=== PATIENT | female | born 1985 | race African-American/Black ===

== ENCOUNTER → 2016-07-12 | Outpatient (CLI) | payer BC ==
--- NOTE | 2016-07-12 17:38 | RAD ---
Indication small for dates. Obstetrical ultrasound examination was performed. No prior obstetrical ultrasound examination is available associated with this . There is a single, viable, IUP. However heart rate was not documented on this exam. The technologist performing the examination indicated positive movement and cardiac activity. The amount of amniotic fluid appears normal. The placenta is predominantly anterior. Biparietal diameter of 3.3 cm, head circumference of 12.2 cm, abdominal circumference of 10 cm and femoral length of 2.3 cm are compatible with a gestational age of approximately 16 weeks 2 days. By sonographic analysis the expected date of confinement is 12/25/2016. Estimated weight is 150 g. There was a 4 chambered heart and a three-vessel cord. The current present is transverse. The visualized bladder stomach and kidneys appeared normal. Because of positioning the spine and brain were not well visualized. IMPRESSION: Single, viable, IUP of approximately 16 weeks 2 days gestation
== END | disposition home or self-care (01) ==
LOC: US 15:41
PROVIDERS: ATTEND Family Medicine
DX: O36.5920 Maternal care for other known or suspected poor fetal growth, second trimester, not applicable or unspecified (principal); Z3A.16 16 weeks gestation of pregnancy
CPT/HCPCS: 76805

== ENCOUNTER → 2016-08-29 | Outpatient (CLI) | payer BC ==
--- NOTE | 2016-08-29 16:40 | KCIC ---
Clinical Indication: Patient measuring large for dates Technique: Study is dated August 29, 2016. No comparison study is available. Transabdominal imaging was performed. Findings: There is a single intrauterine gestation in cephalic presentation. The placenta is anterior in location without evidence of placental previa. Cervix measures at least 3.7 cm in length. IVANIA subjectively is within normal limits. Biometrical data is as follows: BPD = 5.71 cm, with a corresponding gestational age of 23 weeks 3 days. HC = 20.92 cm, with a corresponding gestational age of 23 weeks 0 days. AC = 18.69 cm, with a corresponding gestational age of 23 weeks 3 days. FL = 3.93 cm, with a corresponding gestational age of 22 weeks 5 days. Ratio of head circumference to abdominal circumference is 1.12. Cephalic index is 83 percent. Normal range is 70% to 86%. Overall, the estimated sonographic gestational age is 23 weeks 1 day for an estimated date of delivery of December 25, 2016, concordant with clinical age. Estimated weight is 564 g, 40th percentile. Survey was not performed. heart tones are 149 bpm. IMPRESSION: Single intrauterine gestation with estimated sonographic gestational age of 23 weeks 1 day. Electronically signed by: Mendel Webber MD (08/29/2016 4:37 PM) [id number]
== END | disposition home or self-care (01) ==
LOC: KCIC US 15:33
PROVIDERS: ATTEND Family Medicine
DX: O36.62X0 Maternal care for excessive fetal growth, second trimester, not applicable or unspecified (principal); Z3A.23 23 weeks gestation of pregnancy
CPT/HCPCS: 76805